=== PATIENT | male | born 1980 | race Caucasian/White ===

== ENCOUNTER → 2019-01-18 09:49 | Outpatient (CLI) | payer BC | END | disposition home or self-care (01) | LOC: D.MRI 09:49 | PROVIDERS: ATTEND Orthopaedic Surgery | DX: S53.441A Ulnar collateral ligament sprain of right elbow, initial encounter (principal); X58.XXXA Exposure to other specified factors, initial encounter ==

== ENCOUNTER 2020-04-26 10:25 | Emergency (ER) | payer BC ==
[~2020-04-26] VITALS: Ht 175.3 cm; Wt 81.8 kg
[2020-04-26 10:28] VITALS: BP 120/97; Ht 175.3 cm; Wt 81.8 kg
[2020-04-26] MEDS ORDERED: CELEXA20 MG PO (10:30)
[2020-04-26] MEDS ORDERED: KLONOPIN1 MG PO (10:30)
[2020-04-26 10:57] LABS: BASOPHILS 0.3 % (0-2); HEMATOCRIT 44.2 % (42.0-54.0); HEMOGLOBIN 15.6 g/dL (13.5-17.5); IMMATURE GRANULOCYTES 0.3 % (0-5); LYMPHOCYTES 12.7 % (15-50); MCH 31.6 pg (26.0-34.0); MCHC 35.3 g/dL (31.0-37.0); MCV 89.5 fL (80.0-100.0); MEAN PLATELET VOLUME 10.1 fL (7.4-10.4); MONOCYTES 10.5 % (2-11); NEUTROPHILS 75.2 % (40-80); PLATELET COUNT 178 10x3/uL (130-400); RBC 4.94 10x6/uL (4.20-6.10); WBC 7.6 10x3/uL (4.8-10.8)
[2020-04-26 11:14] LABS: CALC OSMOLALITY 278 mosm/kg (275-300); CALCIUM 8.9 mg/dL (8.5-10.1); CARBON DIOXIDE 24.1 mmol/L (21.0-32.0); CHLORIDE - SERUM 106 mmol/L (98-107); GLUCOSE 92 mg/dL (74-106); POTASSIUM - SERUM 3.9 mmol/L (3.5-5.1); SODIUM 139 mmol/L (136-145); UREA NITROGEN 15 mg/dL (7-18); eGFR NON AFRICAN AMERICAN 88 mL/min (90-120)
[2020-04-26 11:18] LABS: ALBUMIN 3.8 g/dL (3.4-5.0); ALKALINE PHOSPHATASE 67 U/L (30-120); ALT (SGPT) 20 U/L (10-68); BILIRUBIN - TOTAL 0.74 mg/dL (0.2-1.3)
[2020-04-26] MEDS ORDERED: VENTOLIN HFA [SP8 GM INH (11:40)
[2020-04-26] MEDS ORDERED: MEDROL DOSE PACK4 MG PO (11:40)
== END 2020-04-26 12:00 | disposition home or self-care (01) ==
LOC: D.ER 10:25
PROVIDERS: Family Medicine
DX: T54.3X1A Toxic effect of corrosive alkalis and alkali-like substances, accidental (unintentional), initial encounter (principal); J02.9 Acute pharyngitis, unspecified; I10 Essential (primary) hypertension; Z72.0 Tobacco use